=== PATIENT | male | born 1940 | race Caucasian/White ===

== ENCOUNTER 2021-12-10 13:09 | Inpatient (IN) | payer MEDICARE, BC ==
[2021-12-10] MEDS ORDERED: Ondansetron ODT 4 MG TAB PO PRN (15:42)
[2021-12-10] MEDS ORDERED: Acetaminophen 325 MG TAB PO PRN (15:42)
[2021-12-10] MEDS ORDERED: Senokot S 8.6-50 MG TAB PO PRN (15:42)
[2021-12-10] MEDS ORDERED: HYDROcodone/Acetaminophen 5/325 mg Tablet PO PRN (16:00)
[2021-12-10] MEDS: Carbidopa/Levodopa 25-100 mg Tablet PO SCH (21:31)
[2021-12-10] MEDS: Amiodarone 200 MG TAB PO SCH (21:31)
[2021-12-10] MEDS: Famotidine 20 MG TAB PO SCH (21:31)
[2021-12-10] MEDS: buPROPion 75 MG TAB PO SCH (21:31)
[2021-12-11 06:50] LABS: ALT (SGPT) 171 U/L (8-55); AST (SGOT) 105 U/L (5-34); Albumin 3.3 g/dL (3.4-4.8); Alkaline Phosphatase 153 U/L (40-110); Anion Gap 16 mmol/L (10-20); BUN (Urea Nitrogen) 44 mg/dL (8.4-25.7); Bilirubin, Total 1.6 mg/dL (0.2-1.2); Calc. Creatinine Clearance 58 mL/min (70-130); Calcium 9.2 mg/dL (7.8-10.44); Carbon Dioxide 23 mmol/L (23-31); Chloride 104 mmol/L (98-107); Globulin 2.7 g/dL (2.4-3.5); Glucose 190 mg/dL (83-110); Potassium 4.2 mmol/L (3.5-5.1); Sodium 139 mmol/L (136-145)
[2021-12-11 06:52] LABS: #Basophils 0.1 thou/uL (0.0-0.2); #Lymphocytes 1.1 thou/uL (1.20-3.40); #Monocytes 0.7 thou/uL (0.11-0.59); #Neutrophils 14.1 thou/uL (1.40-6.50); %Basophils 0.4 % (0.0-1.0); %Eosinophils 0.1 % (0.0-10.0); %Lymphocytes 6.6 % (21.0-51.0); %Monocytes 4.5 % (0.0-10.0); %Neutrophils 88.4 % (42.0-75.0); Hemoglobin 13.5 g/dL (14.0-18.0); Mean Corpuscular HGB CONC 32.4 g/dL (32.0-36.0); Mean Corpuscular Hemoglobin 29.6 pg (27.0-31.0); Mean Corpuscular Volume 91.3 fL (78.0-98.0); Mean Platelet Volume 7.7 fL (7.4-10.4); Platelet Count 268 thou/uL (130-400); RBC Distribution Width 12.6 % (11.5-14.5); Red Blood Cell (RBC) Count 4.55 mill/uL (4.70-6.10); White Blood Cell (WBC) Count 15.9 thou/uL (4.8-10.8)
[2021-12-11] MEDS ORDERED: Furosemide 40 MG TAB PO SCH (09:00)
[2021-12-11 09:01] LABS: SARS-CoV-2 NAA Rapid Test Not Detected (NotDetected)
[2021-12-11] MEDS: Enoxaparin Sodium 40 MG/0.4 ML SYRINGE SC SCH (10:11)
[2021-12-11] MEDS: Amiodarone 200 MG TAB PO SCH ×2 (11:57→21:01)
[2021-12-11] MEDS: buPROPion 75 MG TAB PO SCH ×2 (11:57→21:01)
[2021-12-11] MEDS: predniSONE 1 MG TAB PO SCH (11:57)
[2021-12-11] MEDS: Multivitamin W/ Minerals 1 TAB PO SCH (11:58)
[2021-12-11] MEDS: Carvedilol 3.125 MG TAB PO SCH ×2 (11:58→18:27)
[2021-12-11] MEDS: Calcium Carbonate 600 MG + Vit D TAB PO SCH (11:58)
[2021-12-11] MEDS: Carbidopa/Levodopa 25-100 mg Tablet PO SCH ×2 (11:58→21:01)
[2021-12-11] MEDS: Tamsulosin HCl 0.4 MG CAP PO SCH (11:59)
[2021-12-11] MEDS: predniSONE 5 MG TAB PO SCH (11:59)
[2021-12-11] MEDS: Famotidine 20 MG TAB PO SCH ×2 (11:59→21:01)
[2021-12-12 06:29] LABS: #Eosinphils 0.1 thou/uL (0.0-0.7); #Lymphocytes 1.3 thou/uL (1.20-3.40); #Monocytes 0.6 thou/uL (0.11-0.59); #Neutrophils 4.8 thou/uL (1.40-6.50); %Basophils 0.6 % (0.0-1.0); %Eosinophils 2.1 % (0.0-10.0); %Lymphocytes 18.6 % (21.0-51.0); %Monocytes 8.5 % (0.0-10.0); %Neutrophils 70.2 % (42.0-75.0); Hemoglobin 12.3 g/dL (14.0-18.0); Mean Corpuscular HGB CONC 33.2 g/dL (32.0-36.0); Mean Corpuscular Hemoglobin 30.3 pg (27.0-31.0); Mean Corpuscular Volume 91.2 fL (78.0-98.0); Mean Platelet Volume 7.8 fL (7.4-10.4); Platelet Count 254 thou/uL (130-400); RBC Distribution Width 12.6 % (11.5-14.5); Red Blood Cell (RBC) Count 4.08 mill/uL (4.70-6.10); White Blood Cell (WBC) Count 6.8 thou/uL (4.8-10.8)
[2021-12-12 06:45] LABS: ALT (SGPT) 97 U/L (8-55); AST (SGOT) 63 U/L (5-34); Albumin 3.1 g/dL (3.4-4.8); Alkaline Phosphatase 133 U/L (40-110); Anion Gap 15 mmol/L (10-20); BUN (Urea Nitrogen) 57 mg/dL (8.4-25.7); Bilirubin, Total 1.1 mg/dL (0.2-1.2); Calc. Creatinine Clearance 45 mL/min (70-130); Calcium 8.8 mg/dL (7.8-10.44); Carbon Dioxide 20 mmol/L (23-31); Chloride 105 mmol/L (98-107); Globulin 2.5 g/dL (2.4-3.5); Glucose 123 mg/dL (83-110); Potassium 3.7 mmol/L (3.5-5.1); Protein, Total 5.6 g/dL (5.8-8.1); Sodium 136 mmol/L (136-145)
[2021-12-12] MEDS: Amiodarone 200 MG TAB PO SCH ×2 (08:48→20:51)
[2021-12-12] MEDS: predniSONE 1 MG TAB PO SCH (08:49)
[2021-12-12] MEDS: predniSONE 5 MG TAB PO SCH (08:49)
[2021-12-12] MEDS: Furosemide 40 MG TAB PO SCH (08:50)
[2021-12-12] MEDS: Tamsulosin HCl 0.4 MG CAP PO SCH (08:50)
[2021-12-12] MEDS: Carbidopa/Levodopa 25-100 mg Tablet PO SCH ×2 (08:51→20:51)
[2021-12-12] MEDS: buPROPion 75 MG TAB PO SCH ×2 (08:51→20:51)
[2021-12-12] MEDS: Aspirin 81 mg Enteric Coated Tablet PO SCH (08:51)
[2021-12-12] MEDS: Calcium Carbonate 600 MG + Vit D TAB PO SCH (08:52)
[2021-12-12] MEDS: Multivitamin W/ Minerals 1 TAB PO SCH (08:52)
[2021-12-12] MEDS: Enoxaparin Sodium 40 MG/0.4 ML SYRINGE SC SCH (08:53)
[2021-12-12] MEDS: Carvedilol 3.125 MG TAB PO SCH ×2 (08:55→16:25)
[2021-12-12] MEDS: Famotidine 20 MG TAB PO SCH (20:51)
[2021-12-13] MEDS: Enoxaparin Sodium 40 MG/0.4 ML SYRINGE SC SCH (08:49)
[2021-12-13] MEDS: predniSONE 5 MG TAB PO SCH (08:50)
[2021-12-13] MEDS: predniSONE 1 MG TAB PO SCH (08:50)
[2021-12-13] MEDS: Aspirin 81 mg Enteric Coated Tablet PO SCH (08:51)
[2021-12-13] MEDS: buPROPion 75 MG TAB PO SCH ×2 (08:51→21:12)
[2021-12-13] MEDS: Multivitamin W/ Minerals 1 TAB PO SCH (08:52)
[2021-12-13] MEDS: Carbidopa/Levodopa 25-100 mg Tablet PO SCH ×2 (08:52→21:12)
[2021-12-13] MEDS: Amiodarone 200 MG TAB PO SCH ×2 (08:52→21:12)
[2021-12-13] MEDS: Tamsulosin HCl 0.4 MG CAP PO SCH (08:53)
[2021-12-13] MEDS: Calcium Carbonate 600 MG + Vit D TAB PO SCH (08:53)
[2021-12-13] MEDS: Carvedilol 3.125 MG TAB PO SCH ×2 (09:36→17:28)
[2021-12-13] MEDS: Famotidine 20 MG TAB PO SCH (21:11)
[2021-12-13] MEDS ORDERED: Ondansetron ODT 4 MG TAB SL PRN (21:15)
[2021-12-14 06:33] LABS: Anion Gap 16 mmol/L (10-20); BUN (Urea Nitrogen) 41 mg/dL (8.4-25.7); Calc. Creatinine Clearance 59 mL/min (70-130); Calcium 8.6 mg/dL (7.8-10.44); Carbon Dioxide 22 mmol/L (23-31); Chloride 106 mmol/L (98-107); Glucose 134 mg/dL (83-110); Potassium 3.6 mmol/L (3.5-5.1); Sodium 140 mmol/L (136-145)
[2021-12-14] MEDS: predniSONE 1 MG TAB PO SCH (09:03)
[2021-12-14] MEDS: Multivitamin W/ Minerals 1 TAB PO SCH (09:04)
[2021-12-14] MEDS: buPROPion 75 MG TAB PO SCH ×2 (09:04→21:12)
[2021-12-14] MEDS: Aspirin 81 mg Enteric Coated Tablet PO SCH (09:04)
[2021-12-14] MEDS: Carbidopa/Levodopa 25-100 mg Tablet PO SCH ×2 (09:04→21:11)
[2021-12-14] MEDS: Enoxaparin Sodium 40 MG/0.4 ML SYRINGE SC SCH (09:05)
[2021-12-14] MEDS: predniSONE 5 MG TAB PO SCH (09:05)
[2021-12-14] MEDS: Carvedilol 3.125 MG TAB PO SCH ×2 (09:05→17:27)
[2021-12-14] MEDS: Calcium Carbonate 600 MG + Vit D TAB PO SCH (09:05)
[2021-12-14] MEDS: Tamsulosin HCl 0.4 MG CAP PO SCH (09:05)
[2021-12-14] MEDS: Amiodarone 200 MG TAB PO SCH ×2 (09:05→21:11)
[2021-12-14] MEDS: Famotidine 20 MG TAB PO SCH (21:11)
[2021-12-15 07:03] LABS: Anion Gap 14 mmol/L (10-20); BUN (Urea Nitrogen) 35 mg/dL (8.4-25.7); Calc. Creatinine Clearance 62 mL/min (70-130); Calcium 8.8 mg/dL (7.8-10.44); Carbon Dioxide 24 mmol/L (23-31); Chloride 106 mmol/L (98-107); Glucose 149 mg/dL (83-110); Potassium 3.9 mmol/L (3.5-5.1); Sodium 140 mmol/L (136-145)
[2021-12-15] MEDS: Calcium Carbonate 600 MG + Vit D TAB PO SCH (08:44)
[2021-12-15] MEDS: predniSONE 5 MG TAB PO SCH (08:45)
[2021-12-15] MEDS: buPROPion 75 MG TAB PO SCH ×2 (08:45→20:14)
[2021-12-15] MEDS: predniSONE 1 MG TAB PO SCH (08:45)
[2021-12-15] MEDS: Multivitamin W/ Minerals 1 TAB PO SCH (08:45)
[2021-12-15] MEDS: Carbidopa/Levodopa 25-100 mg Tablet PO SCH ×2 (08:45→20:14)
[2021-12-15] MEDS: Tamsulosin HCl 0.4 MG CAP PO SCH (08:45)
[2021-12-15] MEDS: Aspirin 81 mg Enteric Coated Tablet PO SCH (08:45)
[2021-12-15] MEDS: Carvedilol 3.125 MG TAB PO SCH ×2 (08:46→18:01)
[2021-12-15] MEDS: Enoxaparin Sodium 40 MG/0.4 ML SYRINGE SC SCH (08:47)
[2021-12-15] MEDS: Amiodarone 200 MG TAB PO SCH ×2 (08:47→20:14)
[2021-12-15] MEDS ORDERED: Furosemide 20 MG TAB PO SCH (11:00)
[2021-12-15] MEDS: Famotidine 20 MG TAB PO SCH (20:14)
[2021-12-16] MEDS: Furosemide 40 MG TAB PO SCH (09:05)
[2021-12-16] MEDS: predniSONE 1 MG TAB PO SCH (09:06)
[2021-12-16] MEDS: predniSONE 5 MG TAB PO SCH (09:06)
[2021-12-16] MEDS: Amiodarone 200 MG TAB PO SCH ×2 (09:06→20:36)
[2021-12-16] MEDS: Enoxaparin Sodium 40 MG/0.4 ML SYRINGE SC SCH (09:06)
[2021-12-16] MEDS: Multivitamin W/ Minerals 1 TAB PO SCH (09:07)
[2021-12-16] MEDS: buPROPion 75 MG TAB PO SCH ×2 (09:07→20:36)
[2021-12-16] MEDS: Tamsulosin HCl 0.4 MG CAP PO SCH (09:07)
[2021-12-16] MEDS: Carbidopa/Levodopa 25-100 mg Tablet PO SCH ×2 (09:07→20:37)
[2021-12-16] MEDS: Carvedilol 3.125 MG TAB PO SCH ×2 (09:07→17:53)
[2021-12-16] MEDS: Aspirin 81 mg Enteric Coated Tablet PO SCH (09:07)
[2021-12-16] MEDS: Calcium Carbonate 600 MG + Vit D TAB PO SCH (09:07)
[2021-12-16 12:25] LABS: ALT (SGPT) 129 U/L (8-55); AST (SGOT) 80 U/L (5-34); Albumin 3.3 g/dL (3.4-4.8); Alkaline Phosphatase 135 U/L (40-110); Anion Gap 15 mmol/L (10-20); BUN (Urea Nitrogen) 34 mg/dL (8.4-25.7); Bilirubin, Total 1.1 mg/dL (0.2-1.2); Calc. Creatinine Clearance 60 mL/min (70-130); Calcium 8.7 mg/dL (7.8-10.44); Carbon Dioxide 23 mmol/L (23-31); Chloride 106 mmol/L (98-107); Globulin 2.7 g/dL (2.4-3.5); Glucose 146 mg/dL (83-110); Sodium 140 mmol/L (136-145)
[2021-12-16] MEDS: Famotidine 20 MG TAB PO SCH (20:36)
[2021-12-17] MEDS: Enoxaparin Sodium 40 MG/0.4 ML SYRINGE SC SCH (09:24)
[2021-12-17] MEDS: Calcium Carbonate 600 MG + Vit D TAB PO SCH (09:24)
[2021-12-17] MEDS: Multivitamin W/ Minerals 1 TAB PO SCH (09:27)
[2021-12-17] MEDS: Amiodarone 200 MG TAB PO SCH ×2 (09:28→20:44)
[2021-12-17] MEDS: Furosemide 40 MG TAB PO SCH (09:28)
[2021-12-17] MEDS: Carvedilol 3.125 MG TAB PO SCH ×2 (09:29→17:08)
[2021-12-17] MEDS: Aspirin 81 mg Enteric Coated Tablet PO SCH (09:29)
[2021-12-17] MEDS: Carbidopa/Levodopa 25-100 mg Tablet PO SCH ×2 (09:29→20:43)
[2021-12-17] MEDS: predniSONE 1 MG TAB PO SCH (09:29)
[2021-12-17] MEDS: Tamsulosin HCl 0.4 MG CAP PO SCH (09:30)
[2021-12-17] MEDS: predniSONE 5 MG TAB PO SCH (09:31)
[2021-12-17] MEDS: buPROPion 75 MG TAB PO SCH ×2 (09:31→20:43)
[2021-12-17 16:04] LABS: #Lymphocytes 0.7 thou/uL (1.20-3.40); #Monocytes 0.7 thou/uL (0.11-0.59); #Neutrophils 9.1 thou/uL (1.40-6.50); %Basophils 0.4 % (0.0-1.0); %Eosinophils 0.1 % (0.0-10.0); %Lymphocytes 6.5 % (21.0-51.0); %Monocytes 6.9 % (0.0-10.0); %Neutrophils 86.2 % (42.0-75.0); Mean Corpuscular Hemoglobin 29.6 pg (27.0-31.0); Mean Corpuscular Volume 92.5 fL (78.0-98.0); Mean Platelet Volume 6.7 fL (7.4-10.4); Platelet Count 308 thou/uL (130-400); RBC Distribution Width 13.2 % (11.5-14.5); White Blood Cell (WBC) Count 10.5 thou/uL (4.8-10.8)
[2021-12-17 16:20] LABS: ALT (SGPT) 109 U/L (8-55); AST (SGOT) 103 U/L (5-34); Albumin 3.4 g/dL (3.4-4.8); Alkaline Phosphatase 139 U/L (40-110); Anion Gap 17 mmol/L (10-20); BUN (Urea Nitrogen) 33 mg/dL (8.4-25.7); Bilirubin, Total 1.4 mg/dL (0.2-1.2); Calc. Creatinine Clearance 59 mL/min (70-130); Calcium 8.7 mg/dL (7.8-10.44); Carbon Dioxide 21 mmol/L (23-31); Chloride 104 mmol/L (98-107); Globulin 2.9 g/dL (2.4-3.5); Glucose 158 mg/dL (83-110); Potassium 3.8 mmol/L (3.5-5.1); Protein, Total 6.3 g/dL (5.8-8.1); Sodium 138 mmol/L (136-145)
[2021-12-17] MEDS ORDERED: Furosemide 40 MG/4 ML VIAL SLOW IVP SCH (19:15)
[2021-12-17] MEDS: Famotidine 20 MG TAB PO SCH (20:43)
[2021-12-17] MEDS: cefTRIAXone\\ROCEPHIN 1 GM in Sodium Chloride 0.9% 100 ML IVPB SCH (21:00)
[2021-12-17] MEDS: Azithromycin 500 MG in Sodium Chloride 0.9% 250 ML 250 ML IVPB SCH (21:49)
[2021-12-18] MEDS: Carvedilol 3.125 MG TAB PO SCH ×2 (10:08→17:15)
[2021-12-18] MEDS: Amiodarone 200 MG TAB PO SCH ×2 (10:08→20:24)
[2021-12-18] MEDS: Multivitamin W/ Minerals 1 TAB PO SCH (10:08)
[2021-12-18] MEDS: Calcium Carbonate 600 MG + Vit D TAB PO SCH (10:08)
[2021-12-18] MEDS: predniSONE 1 MG TAB PO SCH (10:08)
[2021-12-18] MEDS: Carbidopa/Levodopa 25-100 mg Tablet PO SCH ×2 (10:08→20:24)
[2021-12-18] MEDS: predniSONE 5 MG TAB PO SCH (10:08)
[2021-12-18] MEDS: buPROPion 75 MG TAB PO SCH ×2 (10:08→20:24)
[2021-12-18] MEDS: Tamsulosin HCl 0.4 MG CAP PO SCH (10:09)
[2021-12-18] MEDS: Enoxaparin Sodium 40 MG/0.4 ML SYRINGE SC SCH (10:09)
[2021-12-18] MEDS: Furosemide 40 MG/4 ML VIAL SLOW IVP SCH (10:09)
[2021-12-18] MEDS: Aspirin 81 mg Enteric Coated Tablet PO SCH (10:09)
[2021-12-18 15:17] VITALS: BMI 33.5
[2021-12-18 17:31] LABS: Legionella Urinary Ag Negative (Negative); Strep pneumo Urine Ag NEGATIVE (NEGATIVE)
[2021-12-18] MEDS: cefTRIAXone\\ROCEPHIN 1 GM in Sodium Chloride 0.9% 100 ML IVPB SCH (20:08)
[2021-12-18] MEDS: Famotidine 20 MG TAB PO SCH (20:24)
[2021-12-18] MEDS: Azithromycin 500 MG in Sodium Chloride 0.9% 250 ML 250 ML IVPB SCH (20:48)
[2021-12-19 05:57] LABS: #Monocytes 0.8 thou/uL (0.11-0.59); #Neutrophils 10.7 thou/uL (1.40-6.50); %Basophils 0.2 % (0.0-1.0); %Eosinophils 0.4 % (0.0-10.0); %Lymphocytes 7.7 % (21.0-51.0); %Monocytes 6.1 % (0.0-10.0); %Neutrophils 85.7 % (42.0-75.0); Hemoglobin 12.5 g/dL (14.0-18.0); Mean Corpuscular HGB CONC 31.2 g/dL (32.0-36.0); Mean Corpuscular Hemoglobin 29.2 pg (27.0-31.0); Mean Corpuscular Volume 93.8 fL (78.0-98.0); Mean Platelet Volume 7.2 fL (7.4-10.4); Platelet Count 266 thou/uL (130-400); RBC Distribution Width 13.5 % (11.5-14.5); Red Blood Cell (RBC) Count 4.28 mill/uL (4.70-6.10); White Blood Cell (WBC) Count 12.5 thou/uL (4.8-10.8)
[2021-12-19 06:17] LABS: ALT (SGPT) 57 U/L (8-55); AST (SGOT) 79 U/L (5-34); Albumin 3.3 g/dL (3.4-4.8); Alkaline Phosphatase 130 U/L (40-110); Anion Gap 18 mmol/L (10-20); BUN (Urea Nitrogen) 34 mg/dL (8.4-25.7); Bilirubin, Total 1.6 mg/dL (0.2-1.2); Calc. Creatinine Clearance 55 mL/min (70-130); Chloride 103 mmol/L (98-107); Globulin 2.9 g/dL (2.4-3.5); Glucose 162 mg/dL (83-110); Potassium 3.6 mmol/L (3.5-5.1); Protein, Total 6.2 g/dL (5.8-8.1); Sodium 139 mmol/L (136-145)
[2021-12-19 06:43] LABS: Carbon Dioxide 22 mmol/L (23-31)
[2021-12-19] MEDS: Enoxaparin Sodium 40 MG/0.4 ML SYRINGE SC SCH (09:44)
[2021-12-19] MEDS: predniSONE 5 MG TAB PO SCH (09:45)
[2021-12-19] MEDS: Multivitamin W/ Minerals 1 TAB PO SCH (09:46)
[2021-12-19] MEDS: Amiodarone 200 MG TAB PO SCH ×2 (09:46→20:45)
[2021-12-19] MEDS: Tamsulosin HCl 0.4 MG CAP PO SCH (09:46)
[2021-12-19] MEDS: Calcium Carbonate 600 MG + Vit D TAB PO SCH (09:46)
[2021-12-19] MEDS: Carvedilol 3.125 MG TAB PO SCH ×2 (09:47→17:39)
[2021-12-19] MEDS: Aspirin 81 mg Enteric Coated Tablet PO SCH (09:49)
[2021-12-19] MEDS: buPROPion 75 MG TAB PO SCH ×2 (09:50→20:46)
[2021-12-19] MEDS: predniSONE 1 MG TAB PO SCH (09:50)
[2021-12-19] MEDS: Carbidopa/Levodopa 25-100 mg Tablet PO SCH ×2 (09:50→20:45)
[2021-12-19] MEDS: Furosemide 40 MG/4 ML VIAL SLOW IVP SCH (09:51)
[2021-12-19] MEDS: cefTRIAXone\\ROCEPHIN 1 GM in Sodium Chloride 0.9% 100 ML IVPB SCH (20:40)
[2021-12-19] MEDS: Famotidine 20 MG TAB PO SCH (20:46)
[2021-12-19] MEDS: Azithromycin 500 MG in Sodium Chloride 0.9% 250 ML 250 ML IVPB SCH (21:34)
[2021-12-20 06:22] LABS: ALT (SGPT) 43 U/L (8-55); AST (SGOT) 51 U/L (5-34); Albumin 3.1 g/dL (3.4-4.8); Alkaline Phosphatase 119 U/L (40-110); Anion Gap 16 mmol/L (10-20); BUN (Urea Nitrogen) 38 mg/dL (8.4-25.7); Bilirubin, Total 1.2 mg/dL (0.2-1.2); Calc. Creatinine Clearance 59 mL/min (70-130); Carbon Dioxide 21 mmol/L (23-31); Chloride 104 mmol/L (98-107); Globulin 2.8 g/dL (2.4-3.5); Glucose 159 mg/dL (83-110); Potassium 3.2 mmol/L (3.5-5.1); Protein, Total 5.9 g/dL (5.8-8.1); Sodium 138 mmol/L (136-145)
[2021-12-20 07:06] LABS: Hemoglobin 11.5 g/dL (14.0-18.0); Mean Corpuscular HGB CONC 31.5 g/dL (32.0-36.0); Mean Corpuscular Hemoglobin 29.1 pg (27.0-31.0); Mean Corpuscular Volume 92.4 fL (78.0-98.0); Mean Platelet Volume 7.7 fL (7.4-10.4); Platelet Count 245 thou/uL (130-400); Red Blood Cell (RBC) Count 3.95 mill/uL (4.70-6.10); White Blood Cell (WBC) Count 10.3 thou/uL (4.8-10.8)
[2021-12-20 07:19] LABS: Band 6 % (5-11); Lymphocytes 1 % (21-51); MDiff Complete? YES; Monocytes 7 % (0-10); Neutrophil 86 % (42-75); Reactive Lymphocytes 1 % (0-10)
[2021-12-20 07:20] LABS: Platelet Morphology Comment Appears Adequate
[2021-12-20 08:20] VITALS: BP 117/64; TEMP 98
[2021-12-20] MEDS: Enoxaparin Sodium 40 MG/0.4 ML SYRINGE SC SCH (09:43)
[2021-12-20] MEDS: predniSONE 1 MG TAB PO SCH (09:44)
[2021-12-20] MEDS: Tamsulosin HCl 0.4 MG CAP PO SCH (09:44)
[2021-12-20] MEDS: predniSONE 5 MG TAB PO SCH (09:44)
[2021-12-20] MEDS: Furosemide 40 MG/4 ML VIAL SLOW IVP SCH (09:45)
[2021-12-20] MEDS: Carvedilol 3.125 MG TAB PO SCH (09:45)
[2021-12-20] MEDS: Carbidopa/Levodopa 25-100 mg Tablet PO SCH (09:45)
[2021-12-20] MEDS: buPROPion 75 MG TAB PO SCH (09:45)
[2021-12-20] MEDS: Aspirin 81 mg Enteric Coated Tablet PO SCH (09:45)
[2021-12-20] MEDS: Amiodarone 200 MG TAB PO SCH (09:45)
[2021-12-20] MEDS: Calcium Carbonate 600 MG + Vit D TAB PO SCH (09:45)
[2021-12-20] MEDS: Multivitamin W/ Minerals 1 TAB PO SCH (09:45)
[2021-12-24] MEDS ORDERED: Amiodarone 200 MG TAB PO SCH (09:00)
== END 2021-12-20 15:35 | disposition hospice, home (50) | DRG 947 ==
LOC: NAV ACUTE 18:02
PROVIDERS: ADMIT Family Medicine; ATTEND Family Medicine
DX: R53.81 Other malaise (principal); J96.01 Acute respiratory failure with hypoxia; J18.9 Pneumonia, unspecified organism; I50.23 Acute on chronic systolic (congestive) heart failure; I13.0 Hypertensive heart and chronic kidney disease with heart failure and stage 1 through stage 4 chronic kidney disease, or unspecified chronic kidney disease; N17.9 Acute kidney failure, unspecified; G20 Parkinson's disease; I35.0 Nonrheumatic aortic (valve) stenosis; I48.91 Unspecified atrial fibrillation; N40.0 Benign prostatic hyperplasia without lower urinary tract symptoms; N18.9 Chronic kidney disease, unspecified; F32.9 Major depressive disorder, single episode, unspecified; Z20.822 Contact with and (suspected) exposure to COVID-19; I95.9 Hypotension, unspecified; Z66 Do not resuscitate; Z85.46 Personal history of malignant neoplasm of prostate; Z98.890 Other specified postprocedural states; Z89.421 Acquired absence of other right toe(s); Z87.891 Personal history of nicotine dependence
CPT/HCPCS: 36415; 71045; 80048; 80053; 83880; 84145; 85025; 87449; 87899; 90471; 90732; 97602; G0009; J0456; J0696; J1650; J1940; J3490; J7050; J7512; U0002; U0003; U0005